=== PATIENT | female | born 1955 | race African-American/Black ===

== ENCOUNTER 2022-03-28 14:14 | Emergency (ER) | payer MEDICAID ==
[~2022-03-28] VITALS: Ht 180.3 cm; Wt 91.0 kg
[2022-03-28 14:41] VITALS: BP 170/80
== END 2022-03-28 18:53 | disposition left against medical advice (07) ==
LOC: ER 14:14
DX: Z53.21 Procedure and treatment not carried out due to patient leaving prior to being seen by health care provider (principal)